=== PATIENT | male | born 1985 | race Hispanic/Latino ===

== ENCOUNTER 2017-07-12 18:16 | Emergency (ER) | payer BC ==
[2017-07-12 18:21] VITALS: TEMP 99
[2017-07-12] MEDS ORDERED: Sodium Chloride 0.9% 1,000 ML IV STA (18:37)
--- NOTE | 2017-07-12 19:09 | ED PDOC ---
HPI: Psych/Substance Abuse Time Seen by Provider: 07/12/17 18:24 Chief Complaint (Nursing): Psychiatric Evaluation Chief Complaint (Provider): SI, anxiety History Per: Patient History/Exam Limitations: no limitations Onset/Duration Of Symptoms: Hrs Current Symptoms Are (Timing): Still Present Modifying Factor(s): Alcohol, Other (prescribed xanax ) Additional Complaint(s): 31 yo male with history of anxiety presents with anxiety and depression. PT states that had bought his girlfriend a 20K dollar engagement ring and she broke up with him. Pt states she left him for another man. PT reports drinking alcohol today and taking xanax which he was prescribed. Pt denies any other drugs. According to police pt reports SI. Brother with patient in ER. Past Medical History Reviewed: Historical Data, Nursing Documentation, Vital Signs Vital Signs: Last Vital Signs Temp 99.0 F 07/12/17 18:18 Pulse 134 H 07/12/17 18:18 Resp 16 07/12/17 18:18 BP 137/103 H 07/12/17 18:18 Pulse Ox 100 07/12/17 18:18 - Medical History PMH: Anxiety - Surgical History Surgical History: No Surg Hx - Family History Family History: States: No Known Family Hx - Allergies Allergies/Adverse Reactions: Allergies Allergy/AdvReac Type Severity Reaction Status Date / Time No Known Allergies Allergy Verified 07/12/17 18:18 Review of Systems ROS Statement: Except As Marked, All Systems Reviewed And Found Negative Constitutional: Negative for: Fever, Chills Psych: Positive for: Anxiety, Depression Physical Exam - Reviewed Nursing Documentation Reviewed: Yes Vital Signs Reviewed: Yes - Physical Exam Appears: Positive for: Well, Non-toxic, No Acute Distress Head Exam: Positive for: ATRAUMATIC, NORMAL INSPECTION, NORMOCEPHALIC Skin: Positive for: Normal Color, Warm, DRY Eye Exam: Positive for: Normal appearance ENT: Positive for: Normal ENT Inspection Neck: Positive for: Normal, Painless ROM Cardiovascular/Chest: Positive for: Regular Rate, Rhythm Respiratory: Positive for: Normal Breath Sounds. Negative for: Accessory Muscle Use, Respiratory Distress Gastrointestinal/Abdominal: Positive for: Normal Exam, Bowel Sounds, Soft. Negative for: Tenderness Back: Positive for: Normal Inspection Extremity: Positive for: Normal ROM Neurologic/Psych: Positive for: Alert, Oriented - ECG O2 Sat by Pulse Oximetry: 100 Pulse Ox Interpretation: Normal Medical Decision Making Medical Decision Making: IV fluids. Labs and crisis evaluation pending. Disposition - Clinical Impression Clinical Impression: Encounter for psychiatric assessment - Patient ED Disposition Is Patient to be Admitted: Transfer of Care - Disposition Disposition: Transfer of Care Disposition Time: 19:59 Condition: STABLE Forms: [employer] (Slovenian)
[2017-07-12 20:04] LABS: URINE BILIRUBIN NEGATIVE (NEGATIVE); URINE BLOOD NEGATIVE (NEGATIVE); URINE CLARITY CLEAR (Clear); URINE COLOR STRAW (YELLOW); URINE GLUCOSE (UA) NEG (Normal); URINE LEUKOCYTE ESTERASE NEG Leu/uL (Negative); URINE NITRATE NEGATIVE (NEGATIVE); URINE PROTEIN NEGATIVE (NEGATIVE); URINE UROBILINOGEN 0.2-1.0 mg/dL (0.2-1.0)
[2017-07-12 20:13] LABS: BARBITURATES, UR NEGATIVE (NEGATIVE); BENZODIAZEPINES, UR POSITIVE (NEGATIVE); OPIATES, UR NEGATIVE (NEGATIVE); PHENCYCLIDINE, UR NEGATIVE (NEGATIVE)
[2017-07-12 21:01] LABS: BASO % 0.5 % (0.0-2.0); EOS % 0.7 % (0.0-4.0); HEMOGLOBIN 13.9 g/dL (12.0-18.0); LYMPH # 1.2 K/uL (1.0-4.3); LYMPH % 18.2 % (20.0-40.0); MEAN CELL VOLUME 90.9 fl (80.0-94.0); MEAN CORPUSCULAR HEMOGLOBIN 30.5 pg (27.0-31.0); MEAN CORPUSCULAR HGB CONC 33.6 g/dL (33.0-37.0); MEAN PLATELET VOLUME 7.4 fl (7.2-11.7); MONO # 0.4 K/uL (0.0-0.8); MONO % 6.5 % (0.0-10.0); NEUT # 4.8 K/uL (1.8-7.0); NEUT % 74.1 % (50.0-75.0); NRBC % 0.1 % (0.0-0.0); RBC 4.57 Mil/uL (4.40-5.90); RED CELL DISTRIBUTION WIDTH 13.2 % (11.5-14.5); WHITE BLOOD COUNT 6.4 K/uL (4.8-10.8)
[2017-07-12 21:15] LABS: ALB/GLOB RATIO 1.2 (1.0-2.1); ALBUMIN 4.4 g/dL (3.5-5.0); ALT/SGPT 96 U/L (21-72); AST/SGOT 63 U/L (17-59); BLOOD UREA NITROGEN 12 mg/dl (9-20); CALCIUM 9.2 mg/dL (8.4-10.2); GFR AFRICAN-AMERICAN > 60; GFR NON-AFRICAN AMERICAN > 60
[2017-07-12 21:20] LABS: ACETAMINOPHEN < 10.0 ug/ml (10.0-30.0); SALICYLATE < 1.0 mg/dl
--- NOTE | 2017-07-12 22:38 | ED PDOC ---
- Laboratory Results Result Diagrams: 07/12/17 20:40 07/12/17 20:40 - ECG O2 Sat by Pulse Oximetry: 100 - Progress ED Course And Treament: Case endorsed to writer producer from writer producer from [facility] pending labs, crisis eval 22:30 Patient awake, alert, oriented x3. Ambulating steady gait Patient was evaluated by public health social worker; does not meet criteria for admission at this time as per Dr. Cabezas Patient stable for discharge Return precautions given Disposition - Clinical Impression Clinical Impression: Stress - POA Present On Arrival: None - Disposition Disposition: Routine/Home Disposition Time: 22:46 Condition: STABLE Instructions: Stress (ED)
[2017-07-12 22:42] VITALS: BP 121/75; PULSE 96; RESP 18
[2017-07-12 22:47] VITALS: O2SAT 100
--- NOTE | 2017-07-13 11:31 | RAD ---
HISTORY: crisis eval, SI, possible OD, alcohol abuse COMPARISON: No prior. FINDINGS: LUNGS: No active pulmonary disease. PLEURA: No significant pleural effusion identified, no pneumothorax apparent. CARDIOVASCULAR: Normal. OSSEOUS STRUCTURES: No significant abnormalities. VISUALIZED UPPER ABDOMEN: Normal. OTHER FINDINGS: None. IMPRESSION: No active disease.
--- NOTE | 2017-07-13 14:22 | CARD ---
APPROVED REPORT EKG Measurement Heart [id number] <Conclusion> Sinus tachycardia Otherwise normal ECG
== END 2017-07-12 22:49 | disposition home or self-care (01) ==
LOC: EDBD 18:16 → H.ER 18:16
DX: F43.0 Acute stress reaction (principal)
CPT/HCPCS: 71045; 80053; 81003; 82948; 84484; 85025; 87086; 93005; 99282; G0480